=== PATIENT | female | born 1995 | race Caucasian/White ===

== ENCOUNTER 2021-09-22 16:34 | Outpatient (CLI) | payer OTHER | END 2021-09-22 16:35 | disposition home or self-care (01) | LOC: LAB 16:34 | PROVIDERS: ATTEND Physician Assistant | DX: N39.0 Urinary tract infection, site not specified (principal) | CPT/HCPCS: 87086 ==

== ENCOUNTER 2021-09-24 00:39 | Emergency (ER) | payer OTHER ==
[2021-09-24 01:32] LABS: BILIRUBIN,URINE NEGATIVE (NEGATIVE); LEUKOCYTE ESTERASE, URINE SMALL (NEGATIVE); NITRITE,URINE POSITIVE (NEGATIVE); OCCULT BLOOD,URINE LARGE (NEGATIVE)
[2021-09-24 01:42] LABS: CLARITY,URINE HAZY (CLEAR)
[2021-09-24 01:44] LABS: BACTERIA,URINE Few /HPF (None Seen); SQUAMOUS EPITHELIAL CELL,UR MOD Squamous (<= Few)
[2021-09-24 01:45] LABS: HCG UR QUAL NEGATIVE
--- NOTE | 2021-09-24 02:36 | ED Physician Documentation ---
PD HPI FEMALE - Stated complaint Stated Complaint: SIDE PX - Chief complaint Chief Complaint: General - History obtained from History obtained from: Patient - History of Present Illness Timing - onset: How many days ago (6) Timing - details: Gradual onset, Waxing and waning Pain level max: 5 Associated symptoms: Urinary frequency Contributing factors: No: Recently seen: Clinic - Additional information Additional information: c/o 6 days of urinary frequency with sensation of incomplete voiding. Chills, but has not taken temperature at home. She initially took amoxil from an old rx, thinking she had UTI. After a few days there was no improvement and she was then evaluated in outpatient setting, prescribed bactrim (has had two doses thus far) and taking pyridium. she presents due to worsening right flank pain with nausea (no vomiting) since yesterday. Review of Systems Constitutional: reports: Chills, Other (unknown if fever; has not taken temperature at home) Cardiac: reports: Reviewed and negative Respiratory: reports: Reviewed and negative GI: reports: Abdominal Pain (left flank pain), Nausea. denies: Vomiting, Constipation, Diarrhea : reports: Frequency. denies: Dysuria PD PAST MEDICAL HISTORY - Past Medical History Past Medical History: No - Present Medications Home Medications: Ambulatory Orders Medication Instructions Recorded Confirmed Tamsulosin [Flomax] 0.4 mg PO DAILY #7 cap 09/24/21 oxyCODONE/ACET 5/325 [Percocet 5 1 each PO Q4-6H PRN #14 tablet 09/24/21 mg/325 mg] - Allergies Allergies/Adverse Reactions: Allergies Allergy/AdvReac Type Severity Reaction Status Date / Time No Known Drug Allergies Allergy Verified 09/24/21 02:18 PD ED PE NORMAL - Vitals Vital signs reviewed: Yes - General General: Alert and oriented X 3, No acute distress, Well developed/nourished - Cardiac Cardiac: RRR, No murmur - Respiratory Respiratory: No respiratory distress, Clear bilaterally - Abdomen Abdomen: Normal bowel sounds, Soft, Non tender, Non distended - Back Back: No CVA TTP - Derm Derm: No rash Results - Labs Labs: Laboratory Tests 09/24/21 09/24/21 00:49 00:49 Urine Color DK. ORANGE Urine Clarity HAZY Urine pH Ur Specific [place] Urine Protein Urine Glucose (UA) Urine Ketones Urine Occult Blood LARGE H Urine Nitrite POSITIVE H Urine Bilirubin NEGATIVE Urine Urobilinogen Ur Leukocyte Esterase SMALL H Urine RBC 6-10 H Urine WBC 6-10 H Ur Squamous Epith Cells MOD Squamous H Urine Bacteria Few Ur Microscopic Review INDICATED Urine Culture Comments NOT INDICATED Urine HCG, Qual NEGATIVE - Rads (name of study) CT A/P Radiology: Prelim report reviewed, See rad report PD MEDICAL DECISION MAKING - ED course Complexity details: reviewed results, re-evaluated patient, considered differential, d/w patient ED course: results of recent outpatient urine culture is negative (no growth). Tonights UA has nitrates with 6-10 wbc and 6-10 RBC, but also many squamous cells; interpretation accuracy also potentially obscured due to pyridium as well as recent antibiotic use. Given these concerns as to whether the UA results represent infection or contaminated specimen, she is given a dose of IM Rocephin. CT A/P demonstrates 2mmg obstructing calculus right distal ureter with associated hydronephrosis. She reports good pain relief with IV toradol. She is given take-home percocet and PO tamsulosin, with prescriptions for both submitted to her pharmacy. Results d/w patient, follow up recommendation and return precautions also discussed. She is encouraged to continue the bactrim as prescribed. Departure - Departure Disposition: 01 Home, Self Care Clinical Impression: Renal colic Condition: Good Instructions: ED Stone Renal W Colic Prescriptions: Tamsulosin [Flomax] 0.4 mg PO DAILY #7 cap oxyCODONE/ACET 5/325 [Percocet 5 mg/325 mg] 1 each PO Q4-6H PRN #14 tablet PRN Reason: Pain Comments: Your CT scan shows a small kidney stone on the right side. This will likely pass without needing a procedure to remove it. Pain medication (percocet) and a medication that can help speed up the time to passing the stone (tamsulosin) have been electronically submitted to [facility] in [place]. Continue the antibiotic that had been prescribed for you Forms: Activity restrictions Discharge Date/Time: 09/24/21 05:28
[2021-09-24] MEDS ORDERED: LIDOCAINE 1% 2 ML VIAL MC ONE (02:46)
[2021-09-24] MEDS ORDERED: KETOROLAC 60 MG/2 ML VIAL IM STA (02:46)
[2021-09-24] MEDS ORDERED: cefTRIAXone 1 GM VIAL IM STA (02:46)
[2021-09-24] MEDS ORDERED: LIDOCAINE 1% 2 ML VIAL ONE (02:58)
[2021-09-24] MEDS ORDERED: TAMSULOSIN 0.4 MG CAPSULE PO STA (04:54)
[2021-09-24] MEDS ORDERED: oxyCODONE/ACET 5/325 Prepack 4 PO STA (04:54)
[2021-09-24 05:28] VITALS: BP 141/98
--- NOTE | 2021-09-24 08:52 | CT Report ---
PROCEDURE: Abdomen/Pelvis WO INDICATIONS: right flank pain, hematuria TECHNIQUE: Noncontrast 5 mm thick sections acquired from the diaphragms to the symphysis. 5 mm coronal and sagi ttal reformats were then performed. For radiation dose reduction, the following was used: automated exposure control, adjustment of mA and/or kV according to patient size. COMPARISON: None. FINDINGS: Image quality: This study is limited by body habitus. ABDOMEN: Lung bases: Lung bases are clear. Heart size is normal. Solid organs: Liver and spleen are normal in size. Gallbladder wall does not appear thickened. P ancreas is normal in contours. No adrenal nodules. There is an obstructing 2 mm stone seen at the right ureterovesicular junction, as on series 3 image 102 and on series 6 image 62. There is associated moderate right-sided hydroureter and hydronephrosis , with right-sided perinephric fat stranding. No nonobstructing kidney stones are seen. The kidneys demonstrate normal size. Peritoneum and bowel: Unenhanced bowel loops demonstrate normal wall thickness and caliber. No free fluid or air. Nodes and vessels: No retroperitoneal or mesenteric adenopathy by size criteria. Aorta and inferior vena cava are normal in caliber. Miscellaneous: No ventral hernias. PELVIS: Genitourinary: Bladder wall thickness is normal. The uterus demonstrates an unremarkable appearance for age. No adnexal masses are seen. An IUD is seen at the expected location. Miscellaneous: No inguinal hernias or adenopathy. Bones: No suspicious bony lesions. No vertebral body compression fractures. IMPRESSION: 2 mm obstructing stone at the right ureterovesicular junction, with associated right-sided hydrourete r, hydronephrosis, and perinephric fat stranding. No nonobstructing kidney stones are seen. Incidental note is made of: IUD Note: No significant discrepancy from the preliminary report. Reviewed by: Trae Wick MD on 09/24/2021 7:51 AM [facility] Approved by: Trae Wick MD on 09/24/2021 7:51 AM [facility] Station ID: [id number]
== END 2021-09-24 05:28 | disposition home or self-care (01) ==
LOC: ED 00:39
DX: N13.2 Hydronephrosis with renal and ureteral calculous obstruction (principal)
CPT/HCPCS: 74176; 81001; 81025; 96372; 99284; A9270; 81003; 87086